=== PATIENT | male | born 1945 | race Caucasian/White ===

== ENCOUNTER 2017-01-16 09:58 | Outpatient (CLI) | payer MEDICARE ==
[2017-01-16 11:29] LABS: ALT (SGPT) 6 U/L (0-55); AST (SGOT) 14 U/L (5-34); Albumin 4.4 g/dL (3.4-4.8); Alkaline Phosphatase 41 U/L (40-150); Anion Gap 16 mmol/L (10-20); BUN (Urea Nitrogen) 13 mg/dL (8.4-25.7); Bilirubin, Total 0.5 mg/dL (0.2-1.2); Calc. Creatinine Clearance 0 mL/min (70-130); Calcium 9.1 mg/dL (7.8-10.44); Carbon Dioxide 22 mmol/L (23-31); Cardiac Risk 4.5 (Less than 4.5); Chloride 96 mmol/L (98-107); Cholesterol 138 mg/dL (< 200 Desired); Estimated GFR-MDRD 87; Globulin 2.9 g/dL (2.4-3.5); Glucose 88 mg/dL (80-115); HDL Cholesterol 31 mg/dL (>60 Neg Risk); LDL Cholesterol, Calculated 47 mg/dL; Potassium 4.2 mmol/L (3.5-5.1); Protein, Total 7.3 g/dL (5.8-8.1); Sodium 130 mmol/L (136-145); Triglycerides 299 mg/dL (Less than 150); Valproic Acid (Depakene) 89.7 ug/mL (50.0-100.0)
[2017-01-16 11:44] LABS: PSA-Asymptomatic (SCREENING) 0.13 ng/mL (0-4.0)
[2017-01-16 13:08] LABS: #Eosinphils 0.1 thou/uL (0.0-0.7); #Lymphocytes 1.5 thou/uL (1.20-3.40); #Monocytes 0.4 thou/uL (0.11-0.59); #Neutrophils 5.3 thou/uL (1.40-6.50); %Basophils 0.5 % (0.0-1.0); %Eosinophils 0.8 % (0.0-10.0); %Lymphocytes 20.3 % (21.0-51.0); %Neutrophils 73.4 % (42.0-75.0); Hemoglobin 15.3 g/dL (14.0-18.0); MDiff Complete? YES; Mean Corpuscular HGB CONC 35.2 g/dL (32.0-36.0); Mean Corpuscular Hemoglobin 35.6 pg (27.0-31.0); Mean Platelet Volume 5.8 fL (7.4-10.4); Microcytosis SLIGHT = 6-15 cells (100X) (0-5/hpf); PLT Morphology Comment Appears Adequate; Platelet Count 170 thou/uL (130-400); RBC Distribution Width 12.2 % (11.5-14.5); White Blood Cell (WBC) Count 7.3 thou/uL (4.8-10.8)
[2017-01-16 18:02] LABS: HBSAg Index 0.22 S/CO (0-0.99); Hep B Core Total Ab Non-Reactive (NonReactive); Hep B Core Total Index 0.08 S/CO (0-0.79); Hep B Surf Ag Non-Reactive S/CO (NonReactive)
== END 2017-01-16 09:59 | disposition home or self-care (01) ==
LOC: HPCALD 09:58
PROVIDERS: ATTEND Family Medicine
DX: Z12.5 Encounter for screening for malignant neoplasm of prostate (principal); Z11.59 Encounter for screening for other viral diseases; I10 Essential (primary) hypertension; E78.2 Mixed hyperlipidemia; G40.909 Epilepsy, unspecified, not intractable, without status epilepticus
CPT/HCPCS: 36415; 80053; 80061; 80164; 84443; 85025; 86704; 87340; G0103

== ENCOUNTER 2017-07-05 15:24 | Outpatient (CLI) | payer MEDICARE ==
[2017-07-05 16:23] LABS: Anion Gap 15 mmol/L (10-20); BUN (Urea Nitrogen) 13 mg/dL (8.4-25.7); Calc. Creatinine Clearance 0 mL/min (70-130); Calcium 9.1 mg/dL (7.8-10.44); Carbon Dioxide 24 mmol/L (23-31); Chloride 103 mmol/L (98-107); Estimated GFR-MDRD 74; Glucose 88 mg/dL (80-115); Potassium 4.5 mmol/L (3.5-5.1); Sodium 137 mmol/L (136-145)
== END 2017-07-05 15:25 | disposition home or self-care (01) ==
LOC: HPCALD 15:24
PROVIDERS: ATTEND Family Medicine
DX: E87.1 Hypo-osmolality and hyponatremia (principal)
CPT/HCPCS: 80048

== ENCOUNTER 2017-11-01 11:53 | Outpatient (CLI) | payer MEDICARE ==
--- NOTE | 2017-11-01 21:15 | RAD ---
LEFT CLAVICLE 11/01/17 What appears to be an old healed fracture of the mid clavicle is present. There is a fracture at the distal end of this clavicle that appears acute and shows some slight displacement. The AC joint is no widened. In addition, the area around the glenoid fossa is disrupted in the scapula. This appears to be traumatic in nature as well, though I cannot tell if this is new or old. There may be a slightly higher chance this is old. I do not see evidence of it on the old MRI. There is a bit of periarticula r calcification around the humeral head that could be in rotator cuff tendons. IMPRESSION: 1. Acute, slightly displaced fracture of the distal clavicle. There is also an old healed fractu re of the mid clavicle. 2. Traumatic change around the glenoid fossa of the scapula. Age is indeterminate, but it was no t present in 2004. Code T POS: HOME
--- NOTE | 2017-11-01 21:21 | RAD ---
LEFT SHOULDER THREE VIEWS: 11/01/17 An acute displaced fracture of the distal end of the left clavicle is present. An old healed fracture of the mid clavicle is seen. There is disruption of the scapula around the glenoid fossa with some b alcon fragments seen. While the age is indeterminate, there is a higher chance it is old or subacute th an recent. MRI could be helpful at defining exactly what structures are involved and whether there is any edema to suggest it is acute versus chronic. There is the suggestion of some slight calcific ten donitis. The visible adjacent ribs appear intact. IMPRESSION: Acute fracture of the distal end of the left clavicle. Fracture involving the lateral aspect of the s capula around the glenoid, but the age is indeterminate. The latter is though more likely to be old t garcia new. POS: HOME
== END 2017-11-01 11:54 | disposition home or self-care (01) ==
LOC: BURRAD 11:53
PROVIDERS: ATTEND Family Medicine
DX: M25.512 Pain in left shoulder (principal); S42.032A Displaced fracture of lateral end of left clavicle, initial encounter for closed fracture

== ENCOUNTER 2018-03-12 17:11 | Outpatient (CLI) | payer MEDICARE ==
--- NOTE | 2018-03-12 23:27 | RAD ---
THORACIC SPINE: 03/12/2018 COMPARISON: Chest x-ray done at [facility] on 02/07/2018. I do not have access to his older chest x-ray s. TECHNIQUE: AP and lateral views are provided. FINDINGS: Mild anterior compressions are seen of the T7, T8, and T12 foreign bodies. Since I have no prior com parison, I do not know if these are new or old. Anterior height of T7 and T12 are reduced by about 3 0% and T8 by nearly 50%. No disk space narrowing is seen. IMPRESSION: Anterior compression deformities of the T7, T8, and T12 vertebral bodies, age indeterminate. POS: HOME
== END 2018-03-12 17:12 | disposition home or self-care (01) ==
LOC: BURRAD 17:11
PROVIDERS: ATTEND Family Medicine
DX: M43.8X4 Other specified deforming dorsopathies, thoracic region (principal); M79.89 Other specified soft tissue disorders
CPT/HCPCS: 36415; 72070; 85379

== ENCOUNTER 2018-03-13 14:39 | Outpatient (CLI) | payer MEDICARE ==
[~2018-03-13 14:39] MED LIST: Iopamidol 370 76% 100 ML VIAL ONE
--- NOTE | 2018-03-13 18:46 | CT ---
CT ANGIO OF THE CHEST 03/13/[address] of the chest was performed for evaluation of upper back pain and an elevated D-dimer. There is a history of a recent surgical procedure. There is excellent opacification of the pulmonary arteries. There were no filling defects to suggest emboli. There was no sign of aortic dissection or aneurysm. No mediastinal mass or significant adenop athy was seen. there are no lobar infiltrates or masses seen. Some scarring was noted in the left cos tophrenic angle. Mild amounts of basilar atelectasis are seen bilaterally. Scans into the upper abdomen showed no significant changes. IMPRESSION: No acute thoracic findings. No evidence for pulmonary embolism. POS: HOME
== END 2018-03-13 14:40 | disposition home or self-care (01) ==
LOC: BURCT 14:39
PROVIDERS: ATTEND Family Medicine
DX: Z01.818 Encounter for other preprocedural examination (principal); R07.89 Other chest pain; R79.89 Other specified abnormal findings of blood chemistry
CPT/HCPCS: 36415; 71275; 82565; A4216

== ENCOUNTER 2018-03-26 12:54 | Emergency (ER) | payer MEDICARE ==
[2018-03-26 13:32] LABS: ALT (SGPT) 8 U/L (8-55); AST (SGOT) 29 U/L (5-34); Albumin 3.8 g/dL (3.4-4.8); Alkaline Phosphatase 57 U/L (40-150); Anion Gap 18 mmol/L (10-20); BUN (Urea Nitrogen) 14 mg/dL (8.4-25.7); Bilirubin, Total 0.4 mg/dL (0.2-1.2); Calc. Creatinine Clearance 0 mL/min (70-130); Calcium 10.4 mg/dL (7.8-10.44); Carbon Dioxide 23 mmol/L (23-31); Chloride 89 mmol/L (98-107); Estimated GFR-MDRD 77; Globulin 4.6 g/dL (2.4-3.5); Glucose 129 mg/dL (80-115); Potassium 4.6 mmol/L (3.5-5.1); Protein, Total 8.4 g/dL (5.8-8.1); Sodium 125 mmol/L (136-145)
[2018-03-26 13:38] LABS: #Lymphocytes 0.5 thou/uL (1.20-3.40); #Monocytes 0.6 thou/uL (0.11-0.59); #Neutrophils 6.5 thou/uL (1.40-6.50); %Basophils 0.5 % (0.0-1.0); %Lymphocytes 6.1 % (21.0-51.0); %Monocytes 7.4 % (0.0-10.0); Band 2 % (5-11); Hemoglobin 12.2 g/dL (14.0-18.0); Lymphocytes 3 % (21-51); MDiff Complete? YES; Mean Corpuscular HGB CONC 36.9 g/dL (32.0-36.0); Mean Corpuscular Hemoglobin 32.3 pg (27.0-31.0); Mean Corpuscular Volume 87.3 fl (80.0-94.0); Mean Platelet Volume 5.4 fL (7.4-10.4); Monocytes 7 % (0-10); Neutrophil 88 % (42-75); Platelet Count 211 thou/uL (130-400); White Blood Cell (WBC) Count 7.5 thou/uL (4.8-10.8)
[2018-03-26] MEDS ORDERED: Ketorolac Tromethamine 30 MG/ML VIAL ONE (14:26)
[2018-03-26] MEDS ORDERED: HYDROcodone/Acetaminophen 5/325 mg Tablet ONE (14:26)
--- NOTE | 2018-03-26 20:08 | CT ---
CT CHEST AND ABDOMEN AND PELVIS WITH CONTRAST: 03/26/2018 HISTORY: TECHNIQUE: A spiral CT of the chest, abdomen, and pelvis is performed for evaluation after a fall. Axial slices were acquired after a bolus of IV contrast, and coronal and sagittal reconstructions were later done . FINDINGS: THORAX: There is no sign of mediastinal hematoma, mass, or adenopathy. Aortic and coronary arterial calcifications are evident. No pericardial fluid is seen. The lungs show no pneumothorax. There i s some dependent atelectasis in the lower lobes. No effusions are detected. There are multiple old, healed rib fractures on each side, namely some of the mid to lower ribs, more on the left than the r ight. The vertebrae appear intact. ABDOMEN AND PELVIS: The liver, spleen, pancreas, adrenal glands, and kidneys show no sign of lacerat ion or hematoma. All major organs appear intact. There is probably a small, subcentimeter cyst in t he right kidney. There is no obstruction. The aorta is densely calcified in spots. There is dense calcification at the origin of the left rosamaria l artery. No aneurysm is seen. No free air or free fluid is seen in the abdomen. There is no sign of bowel dilation. CT of the pelvis is remarkable for bilateral inguinal hernias. The hernia on the right is rather lar ge and has both mesenteric fat and some bowel within it. [id number], the neck of the hernia is q uiet wide, so there is no obstruction. No inflammatory changes or free fluid is seen in the pelvis. The bony pelvis itself appears intact. There are degenerative changes present in the patient's lumba r spine. There is a mild anterior compression of the T11 vertebral body that was not present in 2005 . It has presumably occurred since, though it may not be acute. Correlate with site of clinical silvio n. IMPRESSION: 1. Evidence of old rib trauma but no acute thoracic findings. 2. No acute traumatic changes within the abdomen or pelvis. 3. Bilateral inguinal hernias, right greater than left. 4. T11 compression, not necessarily acute. Correlate with clinical exam. POS: HOME
== END 2018-03-26 14:59 | disposition home or self-care (01) ==
LOC: BURERS 12:54
DX: S20.222A Contusion of left back wall of thorax, initial encounter (principal); S30.0XXA Contusion of lower back and pelvis, initial encounter; E78.5 Hyperlipidemia, unspecified; I10 Essential (primary) hypertension; F17.210 Nicotine dependence, cigarettes, uncomplicated; G40.409 Other generalized epilepsy and epileptic syndromes, not intractable, without status epilepticus; Z79.899 Other long term (current) drug therapy; W01.0XXA Fall on same level from slipping, tripping and stumbling without subsequent striking against object, initial encounter
CPT/HCPCS: 36415; 71260; 74177; 80053; 85025; 96374; A4216; J1885